=== PATIENT | male | born 1950 | race African-American/Black ===

== ENCOUNTER 2019-03-23 13:17 | Emergency (ER) | payer OTHER, MEDICARE, MEDICAID, SELFPAY ==
--- NOTE | ~2019-03-23 | CT_ITS ---
EXAMINATION: CT cervical spine wo con DATE: 03/23/2019 15:00 INDICATION: Neck pain TECHNIQUE: Computed tomography (CT) of the cervical spine was performed without intravenous contrast. The dose-length product (DLP) was 328.00 mGy-cm. Automated exposure control and iterative reconstruc tion technique were employed. COMPARISON: 11/23/2018 FINDINGS: There is no fracture, dislocation, or subluxation. The vertebral body heights and alignment are normal. There is mild loss of intervertebral disc space height at C5-6 and C6-7. The odontoid is intact. The prevertebral soft tissues are normal. Small degenerative osteophytes project from the an terior endplates of multiple vertebral bodies. There is moderate to severe bilateral facet osteoarthr itis at C2-3 and C3-4. There is moderate to severe bilateral uncovertebral joint osteoarthritis at C6 -7. IMPRESSION: 1. Mild cervical spondylosis without acute findings or significant interval change. Reviewed, dictated and finalized at location A. ER MAKER IMPRESSION: 1. Mild cervical spondylosis without acute findings or significant interval suzan nge.
[2019-03-23 13:22] VITALS: BP 174/92; PULSE 66; RESP 16; TEMP 36.9; O2SAT 100
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
== END 2019-03-23 16:34 | disposition home or self-care (01) ==
LOC: ANHED 16:26
PROVIDERS: Emergency Provider Emergency Medicine; PCP Family Medicine
DX: S16.1XXA Strain of muscle, fascia and tendon at neck level, initial encounter (principal); Z87.891 Personal history of nicotine dependence; Z97.0 Presence of artificial eye; E11.42 Type 2 diabetes mellitus with diabetic polyneuropathy; Z79.4 Long term (current) use of insulin; V63.6XXA Passenger in heavy transport vehicle injured in collision with car, pick-up truck or van in traffic accident, initial encounter
CPT/HCPCS: 72125; 99284

== ENCOUNTER 2020-04-12 14:42 | Emergency (ER) | payer MEDICARE, MEDICAID, SELFPAY ==
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
[2020-04-12 15:04] VITALS: BP 135/88; PULSE 88; RESP 16; TEMP 36.3; O2SAT 100
== END 2020-04-12 15:51 | disposition home or self-care (01) ==
PROVIDERS: Emergency Provider Nurse Practitioner
DX: S46.911A Strain of unspecified muscle, fascia and tendon at shoulder and upper arm level, right arm, initial encounter (principal); V49.50XA Passenger injured in collision with unspecified motor vehicles in traffic accident, initial encounter; M25.511 Pain in right shoulder; M19.011 Primary osteoarthritis, right shoulder; F17.200 Nicotine dependence, unspecified, uncomplicated; Z97.0 Presence of artificial eye; E11.42 Type 2 diabetes mellitus with diabetic polyneuropathy; Z79.4 Long term (current) use of insulin
CPT/HCPCS: 73030; 99213; G0463

== ENCOUNTER 2020-07-14 21:24 | Inpatient (IN) | payer MEDICARE, MEDICAID, SELFPAY ==
--- NOTE | ~2020-07-14 | XR_ITS ---
EXAMINATION: XR abdomen obstructive series DATE: 07/16/2020 10:19 INDICATION: Small bowel obstruction TECHNIQUE: Supine and upright views of the abdomen. FINDINGS: . No prior studies for comparison. The visualized lung parenchyma is normal.. There are dilated small bowel loops measuring up to 4.4 cm . There is residual contrast in the colon which is nondilated.. Gas and stool are seen throughout the colon to the level of the rectum. There is no free air. NG tube in the stomach. Lung bases unremark able. IMPRESSION: 1. Small bowel obstruction. Reviewed, dictated and finalized at location B. IMPRESSION: 1. Small bowel obstruction.
--- NOTE | ~2020-07-14 | XR_ITS ---
EXAMINATION: XR abdomen NG/feed tube insert EXAM DATE: 07/15/2020 00:44 INDICATION: Nasogastric tube placement. TECHNIQUE: Frontal projection(s) of the abdomen for interpretation. Comparison is made to prior exami nation from 04/10/2012. FINDINGS: Feeding tube tip and side-port project over gastric bubble, expected position. Multiple loo ps of severely distended air-filled small bowel, small bowel obstruction. Lung bases unremarkable. IMPRESSION: 1. Feeding tube in position. 2. Small bowel obstruction. Reviewed, dictated and finalized at location A.
--- NOTE | ~2020-07-14 | CT_ITS ---
EXAMINATION: CT abdomen pelvis w con DATE: 07/14/2020 23:28 INDICATION: Lower abdominal pain. TECHNIQUE: Computed tomography (CT) of the abdomen and pelvis was performed with 100 mL Omnipaque-350 intravenous contrast. Automated exposure control and iterative reconstruction technique were employe d. The dose-length product was 273.49 mGy-cm. COMPARISON: 09/25/2016 FINDINGS: Heart size is normal. Lung bases are clear. No pericardial or pleural effusion. Elevation of the left hemidiaphragm which appears to result from prominent dilation of the stomach and small bowel. There is abrupt transition point in the anterior abdomen immediately deep to the umbilicus consistent with small bowel obstruction. The more distal small bowel is decompressed. Moderate amount of stool in the sigmoid colon. The more proximal colon is also relatively decompressed. The appendix is not visualiz ed. No pericecal inflammatory change to suggest acute appendicitis. Liver, gallbladder, spleen, pancreas, bilateral adrenal glands and kidneys are normal. There is mild diffuse bladder wall thickening which could be due to incomplete distention or chronic outlet obstruc tion from the mildly enlarged prostate. Minimal likely reactive ascites in the pelvis. No pneumatosis or free intraperitoneal gas. No pathologically enlarged abdominal or pelvic lymphadenopathy. Mild sc attered degenerative skeletal changes in the spine and pelvis. IMPRESSION: 1. High-grade small bowel obstruction. Reviewed, dictated and finalized at location A.
--- NOTE | ~2020-07-14 | XR_ITS ---
EXAMINATION: XR sm bowel follow through DATE: 07/15/2020 20:31 INDICATION: Small bowel obstruction TECHNIQUE: Brake Repairer Hydraulic radiograph(s) of the abdomen was/were obtained. Water-soluble oral contrast was admi nistered, and sequential radiographs of the abdomen were obtained until oral contrast was noted to be in the proximal colon. 5 fluoroscopic spot images of the small bowel were obtained. Fluoroscopy expo sure time was 0.8 minutes. COMPARISON: None. FINDINGS: Brake Repairer Hydraulic image demonstrates the nasogastric tube with tip in proximal side port in the body of the stoma ch. There are multiple persistent dilated loops of small bowel measuring up to 6 cm scattered through out the abdomen and pelvis consistent with persistent small bowel obstruction. Transit time from the stomach to proximal colon was approximately 4 1/2 hours. The colon and distal most ileum are relative ly decompressed. IMPRESSION: 1. Small bowel obstruction with persistent dilated loops of small bowel and delayed transit time to t he colon of approximately 4 1/2 hours. Reviewed, dictated and finalized at location A. IMPRESSION: 1. Small bowel obstruction with persistent dilated loops of small bowel and del ayed transit time to the colon of approximately 4 1/2 hours.
[2020-07-14 21:24] VITALS: BP 139/102; PULSE 102; RESP 16; TEMP 36.6; O2SAT 98
--- NOTE | 2020-07-14 21:50 | ECG_ITS ---
Measurements Intervals [place] Rate: 92 P: 81 SD: 145 QRS: 85 QRSD: 90 T: 76 QT: 365 QTc: 453 Interpretive Statements SINUS RHYTHM POSSIBLE RIGHT ATRIAL ENLARGEMENT LEFT ATRIAL ENLARGEMENT VOLTAGE CRITERIA FOR LVH BASELINE ARTIFACT- II, III, AVF, V1-V6 BORDERLINE ECG Electronically Signed On 07-15-2020 6:13:23 CDT by Gilbert Gaming D.O.
[2020-07-14 22:02] LABS: Glucose Point of Care 234 mg/dl (65-105)
[2020-07-14] MEDS: LACTATED RINGERS 1,000 ML 999 ML IV CONT (22:19)
[2020-07-14] MEDS: ONDANSETRON INJ 4 MG/2 ML VIAL IV PUSH (22:19)
--- NOTE | 2020-07-14 22:25 | ED.GENADULT ---
HPI - General Adult General Chief complaint: Abdominal Pain Stated complaint: abd pain with n/v Time Seen by Provider: 07/14/20 21:35 Source: patient and RN notes reviewed Mode of arrival: EMS Limitations: no limitations History of Present Illness HPI narrative: This is a 70 year year old male with history DM who presents presents for evaluation of lower abdominal pain with nausea and vomiting. He states his symptoms started 10 hours ago. He reports constant lower abdominal pain . He has nonbilious vomiting and he denies diarrhea. He denies fever or chills. He also denies history of urinary complaints. EMS found patient's BS to be 67. Related Data Home Medications Medication Instructions Recorded Confirmed aspirin 81 mg tablet,delayed 81 mg PO DAILY 12/20/18 07/15/20 release Allergies Allergy/AdvReac Type Severity Reaction Status Date / Time duloxetine Allergy Unknown Rash Verified 06/11/20 09:54 Review of Systems Review of Systems: All systems reviewed & are unremarkable except as noted in HPI and below Constitutional: Constitutional: Denies chills and Denies fever(s) Cardiovascular: Cardiovascular: Denies chest pain Respiratory: Respiratory: Denies cough and Denies dyspnea [facility] Past Medical History Medical History Alcohol abuse with alcohol-induced disorder Anxiety disorder, unspecified Blind right eye Essential (primary) hypertension Hepatitis C Other hyperlipidemia Presence of 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, with long-term current use of insulin Surgical History Surgical History History of eye prosthesis Right History of umbilical hernia repair Family History Family History Father Family history of malignant neoplasm Patient's father is Sibling Family history of diabetes mellitus in first degree relative Family history of malignant neoplasm of ovary Patient's sister is Patient's brother is Mother Family history of malignant neoplasm of breast in first degree relative Patient's mother is Social History Social History Smoking status: Unknown if ever smoked Smoking end date: 07/22/18 Alcohol intake: current Drinks per week: 3 Substance use: current Substance use type: marijuana and crack/cocaine Gender identity (if verbalized by the patient): Male Spiritual care concerns: No Exam Const: General: alert Orientation/consciousness: patient oriented x3 Resp: Effort & Inspection: normal respiratory effort and no retractions Auscultation: clear to auscultation bilaterally Cardio: Rate: regular rate Rhythm: regular rhythm Heart sounds: no murmurs GI: GI Palp: Yes Soft to palpation, No Tenderness to palpation present (GI) and No Guarding due to palpation present (GI) Auscultation: normal bowel sounds Neuro: General: patient oriented x3, moves all extremities and CN's II-XI intact bilaterally Extrem: General: normal to inspection Psych: Mental Status: mental status grossly normal Affect: normal affect Course Reevaluation(s) Reevaluation #1: I have discussed with patient that he was found to have bowel obstruction. He understands management is NG tube placement Date: 07/15/20 Time: 00:12 Consultations Consultation #1: I discussed with Dr. Hope who agrees to consult and NGT. Admit to hospitalist. Date: 07/15/20 Time: 00:12 Vital Signs Vital signs: Vital Signs Temperature 98 F 07/14/20 21:24 Pulse Rate 102 H 07/14/20 21:24 Respiratory Rate 16 07/14/20 21:24 Blood Pressure 139/102 H 07/14/20 21:24 Pulse Oximetry 98 07/14/20 21:24 Temperature 98.2 F 07/15/20 05:48 Pulse Rate
[2020-07-14 22:33] LABS: Basophils Percent Auto 0.2 % (0.2-1.2); Eosinophils Percent Auto 0.2 % (0-4.4); Hematocrit 41.5 % (42.0-52.0); Hemoglobin 13.7 g/dL (14.0-18.0); Immature Granulocyte Absolute 0.03 K/mm3 (0.00-0.031); Immature Granulocyte Percent A 0.4 % (0-0.5); Lymphocytes Absolute Auto 0.96 K/mm3 (0.9-3.2); Lymphocytes Percent Auto 11.3 % (18.3-44.2); Mean Corpuscular Hemoglobin 29.4 pg (26-34); Mean Corpuscular Volume 89.1 fl (80-100); Monocytes Absolute Auto 0.5 K/mm3 (0.1-0.6); Monocytes Percent Auto 5.7 % (2.6-8.5); Neutrophils Percent Auto 82.2 % (45.5-73.1); Platelet Count Result 155 k/mm3 (150-375); Red Blood Count 4.66 M/mm3 (4.6-6.20); White Blood Count 8.5 K/mm3 (4.5-10.0)
[2020-07-14 22:44] LABS: Lactic Acid Reflex 2.2 mmol/L (0.7-2.1)
[2020-07-14 22:44] LABS: Alanine Aminotransferase 50 U/L (4-50); Alkaline Phosphatase 124 U/L (38-126); Anion Gap 13 mmol/L (8-16); Aspartate Amino Transferase 55 U/L (17-59); Bilirubin,Total 1.3 mg/dL (0.2-1.3); Blood Urea Nitrogen 24 mg/dL (9-20); Calcium 11.1 mg/dL (8.4-10.2); Carbon Dioxide 33 mmol/L (22-30); Chloride 93 mmol/L (98-107); Estimated Glomerular Filt Rate 56; Glucose 247 mg/dL (75-110); Lipase 140 U/L (23-300); Potassium 3.3 mmol/L (3.4-5.0); Sodium 139 mmol/L (137-145)
[2020-07-14 23:02] VITALS: BP 166/104; PULSE 96; RESP 16; O2SAT 98
[2020-07-14] MEDS: SODIUM CHLORIDE 0.9% IV 1,000 ML 999 ML IV CONT (23:46)
[2020-07-15] VITALS (7 sets, daily range): BP systolic 131–170; BP diastolic 82–108; PULSE 88–93; RESP 14–20; TEMP 36.7–36.8; O2SAT 95–100; BMI 19.1
[2020-07-15 01:31] LABS: Reflex Lactic Acid Yes or No Add Lactic
[2020-07-15 02:24] LABS: Glucose Point of Care 133 mg/dl (65-105)
--- NOTE | 2020-07-15 02:40 | PC.NURSE ---
Total 500 ml out from NG tube. Pt reports feeling better.
--- NOTE | 2020-07-15 03:11 | ADMGEN ---
This patient, Rico Girard, was admitted to 3 [facility] Surg Room 329-01. Patient/family oriented to hospital policies and general routines including ID bracelet, bed and alarms, visiting hours, pain management, procedures, bathroom and other care routines, personal items, smoking policy, room service/diet, and visiting hours. Information on how to activate the Rapid Response Team has been discussed. Patient/Family are encouraged to report perceived risks to care and to ask questions if they do not understand what they are told or what they should do.
[2020-07-15] MEDS: SODIUM CHLORIDE 0.9% IV 1,000 ML 125 ML IV CONT ×3 (03:17→19:34)
[2020-07-15] MEDS: ONDANSETRON INJ 4 MG/2 ML VIAL IV PUSH ×4 (03:31→20:59)
--- NOTE | 2020-07-15 04:22 | PC.NURSE ---
Patient got very verbal abusive with staff. Refused labs to be drawn and to finish his admission questions. He told staff to get out of his room and not to come back in the morning. Educated patient on importance of lab work and completing admission questions.
[2020-07-15 06:19] LABS: Lactic Acid 1.2 mmol/L (0.7-2.1)
--- NOTE | 2020-07-15 08:48 | PM.IMHP ---
H&P: HPI History of Present Illness Date/Time: 07/15/20 08:48 The patient with past medical history of diabetes hypertension hepatitis-C, presented with chief complaint of abdominal pain, started yesterday, moderate and constant, associated with nausea vomiting, workup in the emergency department revealed small bowel obstruction, NG tube was placed, general surgery were consulted, patient was admitted to the medical floor. Patient is resting comfortably at this time, does not seem in acute distress, NG tube in place, patient denies abdominal pain at this time, patient has deformity and apply mass at the right eye that is unchanged from baseline due to eye trauma many years ago. Chief Complaint: Abdominal pain Review of Systems Review of Systems: All systems reviewed & are unremarkable except as noted in HPI and below Eyes: Eyes: Denies blurry vision and Denies photophobia ENT: Reports Normal hearing present Cardiovascular: Cardiovascular: Denies chest pain Respiratory: Respiratory: Denies dyspnea Gastrointestinal: Gastrointestinal: Denies abdominal pain Genitourinary: Genitourinary: Denies dysuria Musculoskeletal: Musculoskeletal: Denies joint swelling Neurologic: Denies Abnormal speech present, Denies abnormal gait and Denies confusion Psychiatric: Psychiatric: Denies anxiety and Denies depression [facility] Past Medical History Medical History (Updated 07/15/20 @ 09:24 by Kilo Thomas MD) Alcohol abuse with alcohol-induced disorder Anxiety disorder, unspecified Blind right eye Diabetic ulcer of right foot Essential (primary) hypertension Hepatitis C Other hyperlipidemia Presence of 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, with long-term current use of insulin Surgical History Surgical History History of eye prosthesis Right History of umbilical hernia repair Family History Family History Father Family history of malignant neoplasm Patient's father is Sibling Family history of diabetes mellitus in first degree relative Family history of malignant neoplasm of ovary Patient's sister is Patient's brother is Mother Family history of malignant neoplasm of breast in first degree relative Patient's mother is Social History Social History Smoking status: Unknown if ever smoked Smoking end date: 07/22/18 Alcohol intake: current Drinks per week: 3 Substance use: current Substance use type: marijuana and crack/cocaine Gender identity (if verbalized by the patient): Male Spiritual care concerns: No Meds Home Medications and Allergies Home Medications Medication Instructions Recorded Confirmed Type aspirin 81 mg tablet,delayed 81 mg PO DAILY 12/20/18 07/15/20 History release blood-glucose meter #1 each 02/27/19 07/15/20 Rx lancets #100 each 02/27/19 07/15/20 Rx gabapentin 300 mg capsule 300 mg PO TID #270 cap 05/04/20 07/15/20 Rx lisinopril 20 mg tablet 20 mg PO DAILY #90 tablet 05/04/20 07/15/20 Rx sildenafil 100 mg tablet 100 mg PO Q24H PRN #30 tablet 06/11/20 07/15/20 Rx insulin NPH-regular 70-30 U-100 40 unit SUB-Q BID #15 ml 06/16/20 07/15/20 Rx insulin 100 unit/mL subcutaneous pen blood sugar diagnostic #100 each 07/14/20 07/15/20 Rx Allergies Allergy/AdvReac Type Severity Reaction Status Date / Time duloxetine Allergy Unknown Rash Verified 06/11/20 09:54 Vital Signs Vital Signs - 24 hr 07/14/20 21:24 07/14/20 23:02 07/15/20 00:10 Temperature 98 F Pulse Rate 102 H 96 90 Respiratory Rate 16 16 14 Blood Pressure 139/102 H 166/104 H 159/103 H Pulse Oximetry 98 98 98 07/15/20 01:06 07/15/20 01:58 07/15/20 02:50 Temperature 98.3 F Pulse Rate 89 88 93 Respiratory Rate 14
[2020-07-15 10:19] LABS: Glucose Point of Care 171 mg/dl (65-105)
[2020-07-15 12:09] LABS: Glucose Point of Care 195 mg/dl (65-105)
--- NOTE | 2020-07-15 12:39 | PM.CNGS ---
Assessment and Plan Assessment and plan (1) Small bowel obstruction: Code(s): K56.609 - Unspecified intestinal obstruction, unspecified as to partial versus complete obstruction Status: Acute Assessment and Plan: CT scan reviewed and discussed with the patient. Evidence of a small bowel obstruction. Will initially treat this conservatively with NG tube decompression, NPO, IV fluids, and analgesics. Monitor with serial abdominal exams and imaging. Also discussed with the patient that if this does not improve with conservative measures, then he may ultimately require surgical exploration. (2) Acute kidney injury: Code(s): N17.9 - Acute kidney failure, unspecified Status: Acute Assessment and Plan: Creatinine 1.5 on admission. Continue IV fluids while NPO. Management per Hospitalist. Trend labs. (3) Type 2 diabetes mellitus with diabetic polyneuropathy, with long-term current use of insulin: Code(s): E11.42 - Type 2 diabetes mellitus with diabetic polyneuropathy; Z79.4 - vermin exterminator (current) use of insulin Status: Chronic (4) Hepatitis C: Qualifiers: Viral hepatitis chronicity: unspecified Code(s): B19.20 - Unspecified viral hepatitis C without hepatic coma Status: Acute (5) Essential (primary) hypertension: Code(s): I10 - Essential (primary) hypertension Status: Acute (6) Polysubstance abuse: Code(s): F19.10 - Other psychoactive substance abuse, uncomplicated Status: Acute (7) Alcohol abuse with alcohol-induced disorder: Code(s): F10.19 - Alcohol abuse with unspecified alcohol-induced disorder Status: Acute (8) Blind right eye: Code(s): H54.40 - Blindness, one eye, unspecified eye Status: Acute Additional Plan I have discussed the patient's case and plan of care with Dr. quintanilla. Thank you for allowing us to see the patient in consultation and we will continue to follow along with you. History of Present Illness Consult details Consult date: 07/15/20 Reason for consult: other (Small bowel obstruction) Requesting physician: Bri Villalta MD Narrative: This is a 70-year-old male with a history of hepatitis C, polysubstance abuse, insulin-dependent diabetes mellitus, and hypertension who has had at least one episode, possibly more, of a partial small bowel obstruction in the past. When entering the room, the patient tells me he does not feel like talking and is refusing to answer my questions. Therefore, his history and information is obtained from the electronic medical record. He presented to the ER with complaints of abdominal pain that started yesterday. This was accompanied by nausea and vomiting. Workup in the ED showed evidence of a small bowel obstruction on CT. Labs showed a lactic of 2.2 that improved after receiving IV fluids. Labs also showed hypokalemia and acute kidney injury. The patient was admitted to the Hospitalist and our service was consulted for the small bowel obstruction. NG tube was placed, he was made NPO, and is on IV fluids. The patient is now seen and does report his abdominal pain has subsided but he still feels nauseated. Denies flatus. Last BM yesterday. He will not answer any other questions. 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
--- NOTE | 2020-07-15 13:55 | PC.NURSE ---
Patient to x-ray per stretcher.
[2020-07-15 14:08] LABS: Add Urine Microscopic? YES; Appearance Urine Clear (Clear); Bilirubin Urine 1+ (Negative); Blood Urine Trace-lysed (Negative); Color Urine Yellow (Yellow); Glucose Urine UA Negative (Negative); Ketones Urine Trace mg/dL (Negative); Leukocyte Esterase Ur Negative LEU/UL (Negative); Nitrate Urine Negative (Negative); Protein Urine 2+ mg/dL (Negative); Specific Grav Ur 1.015 (1.001-1.035); Urobilinogen Urine 0.2 mg/dL (<2.0); pH Urine 5.5 (5.0-9.0)
[2020-07-15 14:09] LABS: Mucus Urine Rare /lpf; Squamous Epithelial Cell Urine Rare /hpf (Few); WBC Urine 0-3 /hpf
--- NOTE | 2020-07-15 15:38 | PC.NURSE ---
Patient returned from x-ray. Instructed to leave NG tube clamped to obtain more scans.
[2020-07-15 18:10] LABS: Glucose Point of Care 207 mg/dl (65-105)
[2020-07-15 23:33] LABS: Glucose Point of Care 225 mg/dl (65-105)
[2020-07-16] MEDS: SODIUM CHLORIDE 0.9% IV 1,000 ML 125 ML IV CONT ×3 (04:31→21:25)
[2020-07-16 06:00] VITALS: BP 147/85; PULSE 86; RESP 18; TEMP 36.7; O2SAT 100
[2020-07-16 06:35] LABS: Glucose Point of Care 170 mg/dl (65-105)
[2020-07-16 06:48] LABS: Basophils Percent Auto 0.4 % (0.2-1.2); Eosinophils Percent Auto 0.6 % (0-4.4); Hematocrit 35.5 % (42.0-52.0); Hemoglobin 11.2 g/dL (14.0-18.0); Immature Granulocyte Absolute 0.01 K/mm3 (0.00-0.031); Immature Granulocyte Percent A 0.1 % (0-0.5); Lymphocytes Absolute Auto 2.72 K/mm3 (0.9-3.2); Lymphocytes Percent Auto 40.6 % (18.3-44.2); Mean Corpuscular HGB Conc 31.5 g/dl (32-36); Mean Corpuscular Hemoglobin 28.9 pg (26-34); Mean Corpuscular Volume 91.7 fl (80-100); Mean Platelet Volume 11.8 fl (7.4-10.4); Monocytes Absolute Auto 0.6 K/mm3 (0.1-0.6); Monocytes Percent Auto 8.8 % (2.6-8.5); Neutrophils Absolute Auto 3.3 K/mm3 (1.3-6.7); Neutrophils Percent Auto 49.5 % (45.5-73.1); Platelet Count Result 155 k/mm3 (150-375); Red Blood Count 3.87 M/mm3 (4.6-6.20); Red Cell Distribution Width 13.1 % (11.5-14.5); White Blood Count 6.7 K/mm3 (4.5-10.0)
[2020-07-16 07:07] LABS: Alanine Aminotransferase 29 U/L (4-50); Albumin Level 3.7 g/dL (3.5-5.1); Alkaline Phosphatase 87 U/L (38-126); Anion Gap 5 mmol/L (8-16); Aspartate Amino Transferase 30 U/L (17-59); Bilirubin,Total 1.4 mg/dL (0.2-1.3); Blood Urea Nitrogen 28 mg/dL (9-20); Calcium 8.4 mg/dL (8.4-10.2); Carbon Dioxide 33 mmol/L (22-30); Chloride 103 mmol/L (98-107); Estimated CRCL calculation 38 ml/min; Estimated Glomerular Filt Rate > 60; Glucose 201 mg/dL (75-110); INR 1.1; Magnesium 1.7 mg/dL (1.6-2.3); Phosphorus 3.7 mg/dL (2.5-4.5); Potassium 3.8 mmol/L (3.4-5.0); Prothrombin Time 14.4 Seconds (11.1-14.7); Sodium 141 mmol/L (137-145)
[2020-07-16 07:49] LABS: Glucose Point of Care 208 mg/dl (65-105)
--- NOTE | 2020-07-16 10:27 | PM.PNGS ---
Progress Note: A&P Assessment and Plan (1) Small bowel obstruction: Code(s): K56.609 - Unspecified intestinal obstruction, unspecified as to partial versus complete obstruction Status: Acute Assessment and Plan: SBS c delayed transit, +bowel fxn, exam benign, will clamp NG and poss dc later, start clears if NG out, encourage OOB Subjective Subjective Date/Time Seen: 07/16/20 10:27 feels better today, +bowel movements, denies pain, no further N/V Review of Systems Review of Systems: All systems reviewed & are unremarkable except as noted in HPI and below Exam Const: General: cooperative, comfortable and no acute distress Orientation/consciousness: patient oriented x3 Limitations: no limitations Resp: Effort & Inspection: normal respiratory effort Auscultation: clear to auscultation bilaterally Cardio: Rate: regular rate Rhythm: regular rhythm GI: Inspection: normal to inspection and distended GI Palp: Yes Soft to palpation, No Firmness to palpation present (GI), No Tenderness to palpation present (GI), No Guarding due to palpation present (GI) and No Rigid due to palpation Other: soft, decreased dist, NT, +bs Objective Data Vital Signs Vital Signs: Vital Signs - 24 hr 07/15/20 22:00 07/16/20 06:00 Temperature 36.7 C 36.7 C Pulse Rate 93 86 Respiratory Rate 18 18 Blood Pressure 133/82 147/85 H Pulse Oximetry 95 100 Intake/Output Intake/Output: Intake & Output 07/13/20 07/14/20 07/15/20 07/16/20 23:59 23:59 23:59 23:59 Intake Total 4450 1000 Output Total 1200 700 Balance 3250 300 Meds/Results Medications: Active Medications Generic Name Dose Route Start Last Admin Trade Name Freq PRN Reason Stop Dose Admin Dextrose 12.5 gm 07/15/20 09:17 Dextrose 50% 25 Gm/50 Ml Syringe IV PUSH PRN PRN Hypoglycemia Protocol Glucagon 1 mg 07/15/20 09:17 Glucagon For Inj 1 Mg Vial IM PRN PRN Hypoglycemia Protocol Glucose 15 gm 07/15/20 09:17 Glucose Oral Gel 15 Gm Of Glucse In 37.5 Gm Tube PO PRN PRN Hypoglycemia Protocol Sodium Chloride 1,000 mls @ 125 mls/hr 07/15/20 00:55 07/16/20 04:31 Normal Saline Iv IV CONT 125 mls/hr .Q8H LEANDER Administration Dextrose 1,000 mls @ 100 mls/hr 07/15/20 09:17 Dextrose 5% 1,000 Ml IVPB PRN PRN Hypoglycemia Protocol Insulin Aspart 2 - 5 units 07/15/20 12:00 07/16/20 08:02 Insulin Aspart (*Bkc) 100 Units/Ml SUB-Q Not Given [facility] Protocol Ondansetron HCl 4 mg 07/15/20 00:53 07/15/20 20:59 Ondansetron Inj 4 Mg/2 Ml Vial IV PUSH 4 mg Q4H PRN Administration Nausea Radiology Results: ITS Impressions Abdomen/Pelvis CT 07/14/20 23:42 IMPRESSION: 1. High-grade small bowel obstruction. Small Bowel X-Ray 07/15/20 20:34 IMPRESSION: 1. Small bowel obstruction with persistent dilated loops of small bowel and delayed transit time to the colon of approximately 4 1/2 hours. Labs Labs: Laboratory Results - last 24 hr 07/15/20 07/15/20 07/15/20 12:05 13:28 18:04 WBC RBC Hgb Hct MCV MCH MCHC RDW Plt Count MPV Immature Gran % (Auto) Neut % (Auto) Lymph % (Auto) [place] % (Auto) Eos % (Auto) Baso % (Auto) Lymph # (Auto) [place] # (Auto) Eos # (Auto) Baso # (Auto) Abs Immat Gran (auto) Absolute Neuts (auto) Absolute Nucleated RBC Nucleated RBC % PT INR APTT Sodium Potassium Chloride Carbon Dioxide Anion Gap BUN Creatinine Estim Creat Clear Calc Estimated GFR Glucose POC Capillary Glucose 195 H 207 H Calcium Phosphorus Magnesium Total Bilirubin AST ALT Alkaline Phosphatase Total Protein Albumin Urine Color Yellow Urine Appearance Clear Urine pH 5.5 Ur Specific [place] 1.015 Urine Protein 2+ H Urine Glucose (UA) Negative U
--- NOTE | 2020-07-16 12:18 | PM.IMPN ---
Progress Note: A&P Assessment and Plan (1) Small bowel obstruction: Code(s): K56.609 - Unspecified intestinal obstruction, unspecified as to partial versus complete obstruction Status: Acute Assessment and Plan: Currently undergoing a NG clamping trial -last x-ray still shows persistent small bowel obstruction but the patient was having bowel movements and his abdominal pain has improved -continue with conservative treatments for now. Surgery is consulted -continue IV fluids (2) Essential (primary) hypertension: Code(s): I10 - Essential (primary) hypertension Status: Acute Assessment and Plan: Last blood pressure 147/85 -hydralazine for elevated blood pressures (3) Hepatitis C: Qualifiers: Viral hepatitis chronicity: unspecified Code(s): B19.20 - Unspecified viral hepatitis C without hepatic coma Status: Acute Assessment and Plan: Pt should follow up with PCP to see if he would benefit from treatment -liver enzymes WNL -INR 1.0 (4) Type 2 diabetes mellitus with diabetic polyneuropathy, with long-term current use of insulin: Code(s): E11.42 - Type 2 diabetes mellitus with diabetic polyneuropathy; Z79.4 - shelter (current) use of insulin Status: Chronic Assessment and Plan: Last glucose 208 -Continue SSI-Hold home insulin -A1C 11.0--poorly controlled -will restart home insulin when pt is tolerating a diet Additional Plan SCDs for DVT prophylaxis. Time Spent With Patient Time with patient: 25 - 35 minutes Subjective Date/time seen: 07/16/20 12:18 Interval history: Pt is a 70-year-old male here for small bowel obstruction. Patient states he continues to have stools and gas. He has no further abdominal pain. He has not tried anything by mouth and is currently undergoing a NG clamping trial. Pt denies nausea, vomiting, fevers, chills, constipation, diarrhea, chest pain, or shortness of breath. We briefly discussed hepatitis no he has not had any treatment in the past. I recommend he follow-up with his primary care physician or the health department. Review of Systems Review of Systems: All systems reviewed & are unremarkable except as noted in HPI and below Exam Narrative: Exam Narrative: General: Well developed well nourished patient in NAD HEENT: normocephalic, right eye changes from trauma Neck: supple Neuro: Alert and oriented x4 CV:RRR Resp:CTA, no crackles or rhonchi Abd: Soft, non distended. No pain to palpation. Positive bowel sounds Extremities: No swelling, erythema, or pain to palpation. Objective Data Vital Signs Vital Signs: Vital Signs - 24 hr 07/15/20 22:00 07/16/20 06:00 Temperature 98.0 F 98.0 F Pulse Rate 93 86 Respiratory Rate 18 18 Blood Pressure 133/82 147/85 H Pulse Oximetry 95 100 Intake/Output Intake/Output: Intake & Output 07/13/20 07/14/20 07/15/20 07/16/20 23:59 23:59 23:59 23:59 Intake Total 4450 1000 Output Total 1200 700 Balance 3250 300 Meds/Results Medications: Active Medications Generic Name Dose Route Start Last Admin Trade Name Freq PRN Reason Stop Dose Admin Dextrose 12.5 gm 07/15/20 09:17 Dextrose 50% 25 Gm/50 Ml Syringe IV PUSH PRN PRN Hypoglycemia Protocol Glucagon 1 mg 07/15/20 09:17 Glucagon For Inj 1 Mg Vial IM PRN PRN Hypoglycemia Protocol Glucose 15 gm 07/15/20 09:17 Glucose Oral Gel 15 Gm Of Glucse In 37.5 Gm Tube PO PRN PRN Hypoglycemia Protocol Sodium Chloride 1,000 mls @ 125 mls/hr 07/15/20 00:55 07/16/20 04:31 Normal Saline Iv IV CONT 125 mls/hr .Q8H LEANDER Administration Dextrose 1,000 mls @ 100 mls/hr 07/15/20 09:17 Dextrose 5% 1,000 Ml IVPB PRN PRN Hypoglycemia Protocol Insulin Aspart 2 - 5 units 07/15/20 12:00 07/16/20 08:02 Insulin Aspart (*Bkc) 100 Units/Ml SUB-Q Not Given TIDWM LEANDER Pr
[2020-07-16 12:34] LABS: Glucose Point of Care 202 mg/dl (65-105)
[2020-07-16 14:00] VITALS: BP 149/92; PULSE 91; RESP 16; TEMP 36.3; O2SAT 100
[2020-07-16] MEDS: GABAPENTIN 300 MG CAPSULE PO (16:38)
[2020-07-16] MEDS: INSULIN ASPART (*BKC) 100 UNITS/ML SUB-Q ×2 (17:10→21:25)
[2020-07-16 17:14] LABS: Glucose Point of Care 388 mg/dl (65-105)
[2020-07-16 21:54] VITALS: BP 162/91; PULSE 80; RESP 18; TEMP 36.7; O2SAT 100
[2020-07-16 21:57] LABS: Glucose Point of Care 368 mg/dl (65-105)
[2020-07-17] MEDS: SODIUM CHLORIDE 0.9% IV 1,000 ML 125 ML IV CONT (05:13)
[2020-07-17 05:43] VITALS: BP 165/88; PULSE 74; RESP 18; TEMP 36.6; O2SAT 100
[2020-07-17 06:41] LABS: Hematocrit 35.5 % (42.0-52.0); Hemoglobin 11.6 g/dL (14.0-18.0); Mean Corpuscular HGB Conc 32.7 g/dl (32-36); Mean Corpuscular Hemoglobin 29.3 pg (26-34); Mean Corpuscular Volume 89.6 fl (80-100); Mean Platelet Volume 11.1 fl (7.4-10.4); Platelet Count Result 149 k/mm3 (150-375); Red Blood Count 3.96 M/mm3 (4.6-6.20); Red Cell Distribution Width 12.5 % (11.5-14.5)
[2020-07-17 07:03] LABS: Anion Gap 5 mmol/L (8-16); Blood Urea Nitrogen 15 mg/dL (9-20); Calcium 8.2 mg/dL (8.4-10.2); Carbon Dioxide 29 mmol/L (22-30); Chloride 105 mmol/L (98-107); Estimated CRCL calculation 57 ml/min; Estimated Glomerular Filt Rate > 60; Glucose 209 mg/dL (75-110); Magnesium 1.5 mg/dL (1.6-2.3); Potassium 3.5 mmol/L (3.4-5.0); Sodium 139 mmol/L (137-145)
[2020-07-17 08:00] VITALS: PULSE 74; RESP 18; O2SAT 100
[2020-07-17] MEDS: MAGNESIUM SULF 2 GM/WATER 50ML 2 GM/50 ML BAG IVPB (08:04)
[2020-07-17] MEDS: INSULIN ASPART (*BKC) 100 UNITS/ML SUB-Q (08:47)
[2020-07-17] MEDS: INSULIN HUMAN ISOPHAN/REGULAR 70/30 (*BKC) 100 UNITS/ML 30 UNITS SUB-Q (08:48)
[2020-07-17] MEDS: GABAPENTIN 300 MG CAPSULE PO ×2 (08:51→13:57)
[2020-07-17] MEDS: lisinopriL 20 MG TABLET PO (08:51)
[2020-07-17 10:18] LABS: Glucose Point of Care 227 mg/dl (65-105)
--- NOTE | 2020-07-17 10:23 | PM.PNGS ---
Progress Note: A&P Assessment and Plan (1) Small bowel obstruction: Code(s): K56.609 - Unspecified intestinal obstruction, unspecified as to partial versus complete obstruction Status: Acute Assessment and Plan: SBS c delayed transit, +bowel fxn, exam benign, encourage OOB. Patient apparently has done well overnight. He is up walking. He tolerated clear liquids well so will advance diet. Additional Plan Discussed patient's care with Ev Mi. Okay with surgery for discharge later today if tolerates lunch well. Recommend follow-up with PCP and follow a soft diet for several days postop. Thank you for allowing us to see the patient in consultation. Subjective Subjective Date/Time Seen: 07/17/20 10:23 Interval history: Patient lying in bed when I entered the room. Denies abdominal pain. He states he wants to eat something more. He tolerated a clear liquid breakfast well. States he has had several bowel movements overnight. Review of Systems Constitutional: Constitutional: Reports no additional constitutional complaints and Denies fever(s) ENT: Reports other (Mucous Membranes moist.) Cardiovascular: Cardiovascular: Denies dyspnea Respiratory: Respiratory: Denies pain on inspiration and Denies dyspnea Gastrointestinal: Gastrointestinal: Reports as per HPI Musculoskeletal: Musculoskeletal: Reports other (No calf swelling or edema) Integumentary/Breasts: Skin/Breast: Reports system reviewed and no additional complaints, except as docu Exam Const: General: cooperative, comfortable, no acute distress, alert and awake Nutritional Appearance: thin Orientation/consciousness: patient oriented x3 and Other orientation findings (Refusing to answer orientation questions.) Limitations: no limitations HENMT: Head: normocephalic and atraumatic Ears: hearing grossly normal bilaterally and external ears normal Mouth: No moist mucous membranes Eyes: General: appearance normal, both eyes and all related structures Sclera: sclerae normal Pupils: Equal, round and reactive pupils present EOM: EOMs intact bilaterally Other: Right eye prosthesis Neck: Neck: normal visual inspection and full ROM Resp: Effort & Inspection: normal respiratory effort, able to speak in complete sentences and no respiratory distress Auscultation: clear to auscultation bilaterally Cardio: Rate: regular rate Rhythm: regular rhythm Heart sounds: S1 normal heart sound present and S2 normal heart sound present GI: Inspection: normal to inspection, distended, scar (umcilical), no visible herniation and other (mildly distended) Auscultation: normal bowel sounds Rectal Exam: deferred Other: soft,good BS, NT, +bs : General: Yes no CVA tenderness Back/Spine/Pelvis: Back: no CVA tenderness Skin: General skin exam: normal color and no rashes or lesions noted Neuro: General: patient oriented x3, moves all extremities and no focal motor deficits Cranial nerves: Yes CN's II-XII intact bilaterally, Yes Equal, round and reactive pupils present and Yes Normal hearing present Speech: normal speech Motor exam (neuro): 5/5 motor strength present throughout Extrem: General: normal to inspection and no clubbing, cyanosis or edema Psych: Mental Status: mental status grossly normal Affect: Irritable affect present Attitude: Refuses to answer (attititude/behavior) Insight: Fair insight present (Psych) Judgement: Fair judgement present (Psych) Objective Data Vital Signs Vital Signs: Vital Signs - 24 hr 07/16/20 14:00 07/16/20 21:54 07/17/20 05:43 Temperature 36.3 C L 36.7 C 36.6 C Pulse Rate 91 80 74 Respiratory Rate 16 18 18 Blood Pressure 149/92 H 162/91 H 165/88 H Pulse Oximetry 100 100 100 Intake/Output Intake/Output: Intake & Output 07/14/20 07/15/20 07/16/20 07/17/20 23:59 23:59 23:59 23:59 Intake Total 4450 3240 2080 Output Total 1200 700 Balance 3250 2540 2080 Meds/Results Medications: Active Medicat
[2020-07-17 10:30] VITALS: BP 140/88
[2020-07-17 12:09] LABS: Glucose Point of Care 125 mg/dl (65-105)
--- NOTE | 2020-07-18 07:40 | PM.DS ---
DS: Admitting Diagnosis Admitting Diagnosis Admitting Diagnosis: SBO DS: Discharge Diagnosis Discharge Diagnosis (1) Small bowel obstruction: Code(s): K56.609 - Unspecified intestinal obstruction, unspecified as to partial versus complete obstruction Status: Acute Assessment and Plan: Pt improved with conservative tx (including NG tube) -Day of discharge pt was having no abdominal pain, bowel movements and passing gas. -Sx was consulted during his stay -Pt tolerating a diet at d/c (2) Essential (primary) hypertension: Code(s): I10 - Essential (primary) hypertension Status: Acute Assessment and Plan: Last blood pressure 140/88 -home lisinopril increased at d/c (3) Hepatitis C: Qualifiers: Viral hepatitis chronicity: unspecified Code(s): B19.20 - Unspecified viral hepatitis C without hepatic coma Status: Acute Assessment and Plan: Pt should follow up with PCP to see if he would benefit from treatment -liver enzymes WNL -INR 1.0 (4) Type 2 diabetes mellitus with diabetic polyneuropathy, with long-term current use of insulin: Code(s): E11.42 - Type 2 diabetes mellitus with diabetic polyneuropathy; Z79.4 - halfway (current) use of insulin Status: Chronic Assessment and Plan: Last glucose 125 -Continue home regimen -A1C 11.0--poorly controlled -patient just had his insulin regimen adjusted a month prior to being in the hospital and his A1c has already improved. I told him to follow-up with whoever it has been adjusting it for further adjustments as needed DS: Summary Hospital Course Hospital Course: Patient is a 70-year-old male with a past medical history of type 2 diabetes, hepatitis-C, drug use, and hypertension who presented emergency room for abdominal pain with nausea and vomiting and was found have a small-bowel obstruction. Vitals in the ER were temperature 98? F, pulse 102, respiratory rate 16, blood pressure 139/102, pulse ox 98 on room air. He initially had BETH with a creatinine 1.5 and BUN at 24. Lactic acid initially mildly elevated 2.2. Abdominal CT showed high-grade small-bowel obstruction. Patient was admitted to the hospitalist service and observed. Surgery is consulted and recommended conservative treatment. An NG tube was placed and the patient's pain improved. He continued to have a small-bowel obstruction for a day or so and then resolved. The day of discharge she had no abdominal pain and was having bowel movements as well as gas. His blood pressure did run high and his lisinopril was increased at discharge. He is also going to follow-up with primary care physician about his diabetes regimen as well as possibly talk to them about hepatitis treatment. Overall, the patient was improving. He was educated about the worrisome signs and symptoms to come back to emergency room for was discharged stable condition. Time Spent with Patient Time attestation: Total time spent providing and/or coordinating discharge services:35 min Exam Narrative: Exam Narrative: General: Well developed well nourished patient in NAD HEENT: normocephalic, right eye changes from trauma Neck: supple Neuro: Alert and oriented x4 CV:RRR Resp:CTA, no crackles or rhonchi Abd: Soft, non distended. No pain to palpation. Positive bowel sounds Extremities: No swelling, erythema, or pain to palpation. DS: Data Data Completed and Pending Labs on day of discharge: Labs from last 24 hours 07/17/20 07/17/20 11:52 08:09 POC Capillary Glucose 125 H 227 H Discharge Plan Discharge Attending physician on discharge: Gerardo Olmos Consulting providers: Kory Hope Discharging Clinician: Ev Burger Patient Disposition: Home, Self-Care Activity: as tolerated Diet: diabetic Discharge Instructions: -please note your medications have changed. This includes dosages. -continue wi
== END 2020-07-17 16:05 | disposition home or self-care (01) | DRG 389 ==
LOC: ANHED 07-15 02:37 → ANH3MEDSUR 07-15 07:50
PROVIDERS: Emergency Medicine; Admitting Provider Internal Medicine; Emergency Provider General Practice; PCP Family Medicine; Visit Provider Physician Assistant
DX: K56.609 Unspecified intestinal obstruction, unspecified as to partial versus complete obstruction (principal); N17.9 Acute kidney failure, unspecified; F10.19 Alcohol abuse with unspecified alcohol-induced disorder; E11.42 Type 2 diabetes mellitus with diabetic polyneuropathy; I10 Essential (primary) hypertension; E78.49 Other hyperlipidemia; E87.6 Hypokalemia; B19.20 Unspecified viral hepatitis C without hepatic coma; F19.10 Other psychoactive substance abuse, uncomplicated; H54.40 Blindness, one eye, unspecified eye; E83.42 Hypomagnesemia; Z79.4 Long term (current) use of insulin; Z79.82 Long term (current) use of aspirin; Z79.899 Other long term (current) drug therapy
CPT/HCPCS: 36415; 74019; 74177; 74250; 80048; 80053; 81001; 82948; 83036; 83605; 83690; 83735; 84100; 85025; 85027; 85610; 85730; 93005; 96361; 96365; 96375; 97161; 97165; 99285; A9270; J0131; J1815; J2405; J3475; J7030; J7120; Q9967

== ENCOUNTER 2021-01-14 16:00 | Outpatient (CLI) | payer MEDICARE, MEDICAID, SELFPAY ==
--- NOTE | ~2021-01-14 | XR_ITS ---
EXAMINATION: XR foot RT min 3V DATE: 01/14/2021 16:44 INDICATION: Nonpressure chronic ulcer at the lateral side of the right foot TECHNIQUE: Dorsoplantar, two oblique and lateral views of the right foot were obtained. COMPARISON: None. FINDINGS: Bone alignment is normal. No fracture. Mild polyarticular osteoarthritis at a few of the joints in th e mid and forefoot. Mild soft tissue swelling about the ankle and hindfoot with irregular skin surfac e along the lateral aspect of the mid and hindfoot consistent with provided history of chronic ulcera tion. No cortical erosion or periosteal reaction to suggest underlying osteomyelitis. IMPRESSION: 1. Shallow ulceration along the lateral right mid and hindfoot. No evident underlying osteomyelitis. Reviewed, dictated and finalized at location A. ER CHANGER IMPRESSION: 1. Shallow ulceration along the lateral right mid and hindfoot. No evident unde rlying osteomyelitis.
== END 2021-01-14 16:01 | disposition home or self-care (01) ==
LOC: ANHIMG 16:08
PROVIDERS: PCP Family Medicine; Visit Provider Nurse Practitioner
DX: L97.519 Non-pressure chronic ulcer of other part of right foot with unspecified severity (principal)
CPT/HCPCS: 73630

== ENCOUNTER 2021-01-26 12:04 | Outpatient (CLI) | payer MEDICARE, MEDICAID, SELFPAY ==
[2021-01-26 14:40] LABS: Hepatitis C Virus Antibody Reactive (Negative)
[2021-02-08 09:16] LABS: Hepatitis C RNA, Quant PCR 1050000 IU/mL
== END 2021-01-26 12:05 | disposition home or self-care (01) ==
PROVIDERS: PCP Family Medicine; Visit Provider Nurse Practitioner
DX: Z86.19 Personal history of other infectious and parasitic diseases (principal)
CPT/HCPCS: 36415; 86803; 87522; 99213; G0463

== ENCOUNTER 2021-03-02 07:33 | Outpatient (RCR) | payer MEDICARE, MEDICAID, SELFPAY ==
--- NOTE | 2021-01-18 10:53 | PCWOUND ---
WOCN NOTE tried to call patient to set up appointment, message is in Frisian. Unable to understand it. placed call to PCP to let them know, they state they will call him and let him know to call us back to make an appointment.
[2021-01-26 12:30] VITALS: BMI 20.2
--- NOTE | 2021-03-23 13:15 | PCWOUND ---
WOCN NOTE Patient did not show up for scheduled appointment, no phone call was made to cancel. Unable to contact patient as his voicemail is not set up.
--- NOTE | 2021-04-14 12:56 | PCWOUND ---
LVCN NOTE patient had appointment for today 04/14/21 that was scheduled by PCP office. Patient did not show up for his appointment, no call was made to cancel or reschedule. Spoke with Courtney at Dr. More's office to inform of patient no-call/no-show.
== END 2021-04-26 23:59 | disposition home or self-care (01) ==
LOC: ANHWOC 07:33
PROVIDERS: PCP Family Medicine; Visit Provider Nurse Practitioner
DX: L97.519 Non-pressure chronic ulcer of other part of right foot with unspecified severity (principal)
CPT/HCPCS: 99212; 99213; G0463